=== PATIENT | female | born 1980 | race Caucasian/White ===

== ENCOUNTER 2019-12-15 19:42 | Emergency (ER) | payer BC ==
[2019-12-15] MEDS ORDERED: FLUORESCEIN STRIPS 1 MG STRIP LEFT EYE ONE (20:20)
[2019-12-15] MEDS ORDERED: PROPARACAINE 0.5% OPHTH DROPS 15 ML BTL LEFT EYE STA (20:20)
[2019-12-15] MEDS ORDERED: ONDANSETRON 4 MG/2 ML VIAL IVP STA (20:31)
[2019-12-15] MEDS ORDERED: KETOROLAC 15 MG/ML 1 ML VIAL IVP STA (20:31)
[2019-12-15] MEDS ORDERED: SODIUM CHLORIDE 0.9% 1,000 ML IV ONE (20:31)
--- NOTE | 2019-12-15 20:35 | ED ---
General Adult HPI - General Source: patient Mode of arrival: ambulatory Limitations: no limitations <Priyanka Martinez - Last Filed: 12/16/19 00:48> <Paris Tellez - Last Filed: 12/16/19 13:22> - General Chief complaint: Eye Problems Stated complaint: LT eye pain Time Seen by Provider: 12/15/19 20:12 - History of Present Illness Initial comments: 39-year-old female patient presents to the emergency department today for evaluation of left eye pain. Patient states that on Tuesday she started to have eye irritation felt like something may have been and it. Patient states that she thought she could manage on her own however Tuesday her pain was worse so she went to urgent care. They told her that there was nothing they could do for her and instructed her to follow-up with an gang head saw operator. On she saw an gang head saw operator in [place] who informed her that she had foreign bodies which she did remove. He started her on an antibiotic drop and told her she did have significant improvement within 24 hours. Yesterday/Tuesday patient states that her pain seemed to be worse again and so she went to ophthalmology here in [facility], Dr. Wang. States that he confirmed diagnosis of foreign body with byron bojorquez and urged her to continue the treatment. She was given a prescription for Catharpin which she has been taking which has not helped. Patient states that the pain seemed to be worse last evening so she went to [facility] and was informed that she had an ulcer to the eye and they changed her antibiotic regimen. She did have a CT of her brain which was negative. Patient states that she has been doing both without any relief. Patient states she has been vomiting throughout the day today. Denies fever, chills, headache, dizziness, weakness. States she does have some blurred vision to the eye. Denies constipation or diarrhea. States that she does have history of depression and takes antidepressants but no other medical problems. Patient denies any recent rash, cough, shortness of breath, chest pain, abdominal pain, back pain, numbness, tingling, hematuria, dysuria, urinary urgency, urinary frequency, or any other complaints. (Priyanka Martinez) - Related Data Previous Rx's Medication Instructions Recorded Ondansetron [Zofran ODT] 4 mg PO Q8HR PRN #10 tab 12/15/19 Allergies Allergy/AdvReac Type Severity Reaction Status Date / Time No Known Allergies Allergy Verified 12/16/19 06:46 Review of Systems ROS Other: All systems not noted in ROS Statement are negative. <Priyanka Martinez - Last Filed: 12/16/19 00:48> ROS Other: All systems not noted in ROS Statement are negative. <Paris Tellez Jacinto - Last Filed: 12/16/19 13:22> ROS Statement: Those systems with pertinent positive or pertinent negative responses have been documented in the HPI. Past Medical History Past Medical History: No Reported History History of Any Multi-Drug Resistant Organisms: None Reported Past Surgical History: Orthopedic Surgery Past Psychological History: Anxiety Smoking Status: Never smoker Past Alcohol Use History: Occasional Past Drug Use History: None Reported <Priyanka Martinez - Last Filed: 12/16/19 00:48> General Exam Limitations: no limitations General appearance: alert, in no apparent distress, other (This is a well- developed, well-nourished adult female patient in mild distress related to pain. Vital signs upon presentation are temperature 98.1F, pulse 69, respirations 16, blood pressure 126/80, pulse ox 99% on room air.) Eye exam: Present: PERRL, EOMI, conjunctival injection (Left, very mild), other (Fluorescein stain with Wood's lamp examination was performed and did show multiple lesions on the cornea to the lateral region around 3:00. There is negative Criss sign. Left eye pressure was between 21 and 23 mmHg, right eye pressure was between 18 and 19 mmHg.). Absent: normal appearance, scleral icterus, periorbital swelling ENT exam: Present: normal exam, normal oropharynx, mucous membranes moist Respiratory exam: Present: normal lung sounds bilaterally. Absent: respiratory distress, wheezes, rales, rhonchi, stridor Cardiovascular Exam: Present: regular rate, normal rhythm, normal heart sounds. Absent: systolic murmur, diastolic murmur, rubs, gallop, clicks GI/Abdominal exam: Present: soft, normal bowel sounds. Absent: distended, tenderness, guarding, rebound, rigid Neurological exam: Present: alert, oriented X3, CN II-XII intact Psychiatric exam: Present: normal affect, normal mood Skin exam: Present: warm, dry, intact, normal color. Absent: rash <Priyanka Martinez - Last Filed: 12/16/19 00:48> Course Vital Signs 12/15/19 12/15/19 12/15/19 20:07 21:30 22:51 Temperature 98.1 F 98.0 F 98.2 F Pulse Rate 69 63 61 Respiratory 16 18 18 Rate Blood Pressure 126/80 111/62 116/73 O2 Sat by Pulse 99 99 99 Oximetry Medical Decision Making - Lab Data Result diagrams: 12/15/19 20:41 12/15/19 20:41 <Priyanka Martinez - Last Filed: 12/16/19 00:48> - Lab Data Result diagrams: 12/15/19 20:41 12/15/19 20:41 <Paris Tellez - Last Filed: 12/16/19 13:22> - Medical Decision Making 39-year-old female patient presents to the emergency department today for evaluation of left eye pain. Physical examination did reveal mild left conj unctival injection. Fluorescein stain with Wood's lamp examination was performed and did reveal corneal lesions around 3:00. Pressures to the left eye was between 21 and 23 mmHg, right eye between 18 and 19 mmHg. Labs reviewed and revealed normal white blood cell count. Negative ESR and CRP. Patient has been evaluated by 2 ophthalmologists and was evaluated at [facility] last night where she had negative computed tomography scan. Patient is currently taking Gatifloxacin and ketoralac opthalmic. She also has been taking norco without relief. I did discuss the case with risk consultant ophthalmology Dr. Rico who recommends continuing the regimen she is on and to follow up with he r gang head saw operator on Tuesday. We did discuss pain medication, drops, and cool compresses. She is instructed to follow-up with her primary care physician for recheck in 1-2 days. Return parameters were discussed in detail. She verbalizes understanding and agrees with this plan. (Priyanka Martinez) I was available for consultation in the emergency department. The history and physical exam were done by the midlevel provider. I was consulted for this patients care. I reviewed the case with the midlevel provider and based on their presentation of the patient, I agree with the assessment, medical decision making and plan of care as documented. Chart was dictated using [employer] dictation software. Attempts were made to correct any dictation errors however some typographical errors may persist. Patient was seen during a national state of emergency due to the Covid-19 pandemic. (Paris Tellez) - Lab Data Lab Results 12/15/19 12/15/19 12/15/19 Range/Units 20:41 20:41 20:41 WBC 5.9 (3.8-10.6) k/uL RBC 4.92 (3.80-5.40) m/uL Hgb 15.8 (11.4-16.0) gm/dL Hct 48.0 H (34.0-46.0) % MCV 97.4 (80.0-100.0) fL MCH 32.1 (25.0-35.0) pg MCHC 33.0 (31.0-37.0) g/dL RDW 12.0 (11.5-15.5) % Plt Count 259 (150-450) k/uL Neutrophils % 70 % Lymphocytes % 19 % Monocytes % 6 % Eosinophils % 1 % Basophils % 1 % Neutrophils # 4.1 (1.3-7.7) k/uL Lymphocytes # 1.1 (1.0-4.8) k/uL Monocytes # 0.3 (0-1.0) k/uL Eosinophils # 0.1 (0-0.7) k/uL Basophils # 0.1 (0-0.2) k/uL ESR 8 (0-20) mm/hr Sodium 137 (137-145) mmol/L Potassium 4.5 (3.5-5.1) mmol/L Chloride 103 (98-107) mmol/L Carbon Dioxide 25 (22-30) mmol/L Anion Gap 9 mmol/L BUN 11 (7-17) mg/dL Creatinine 0.64 (0.52-1.04) mg/dL Est GFR (CKD-EPI)AfAm >90 (>60 ml/min/1.73 sqM) Est GFR (CKD-EPI)NonAf >90 (>60 ml/min/1.73 sqM) Glucose 105 H (74-99) mg/dL Calcium 9.6 (8.4-10.2) mg/dL Total Bilirubin 0.7 (0.2-1.3) mg/dL AST 20 (14-36) U/L ALT 12 (4-34) U/L Alkaline Phosphatase 65 (38-126) U/L C-Reactive Protein (<10.0) mg/L Total Protein 8.1 (6.3-8.2) g/dL Albumin 4.8 (3.5-5.0) g/dL Lipase 66 (23-300) U/L 12/15/19 Range/Units 20:41 WBC (3.8-10.6) k/uL RBC (3.80-5.40) m/uL Hgb (11.4-16.0) gm/dL Hct (34.0-46.0) % MCV (80.0-100.0) fL MCH (25.0-35.0) pg MCHC (31.0-37.0) g/dL RDW (11.5-15.5) % Plt Count (150-450) k/uL Neutrophils % % Lymphocytes % % Monocytes % % Eosinophils % % Basophils % % Neutrophils # (1.3-7.7) k/uL Lymphocytes # (1.0-4.8) k/uL Monocytes # (0-1.0) k/uL Eosinophils # (0-0.7) k/uL Basophils # (0-0.2) k/uL ESR (0-20) mm/hr Sodium (137-145) mmol/L Potassium (3.5-5.1) mmol/L Chloride (98-107) mmol/L Carbon Dioxide (22-30) mmol/L Anion Gap mmol/L BUN (7-17) mg/dL Creatinine (0.52-1.04) mg/dL Est GFR (CKD-EPI)AfAm (>60 ml/min/1.73 sqM) Est GFR (CKD-EPI)NonAf (>60 ml/min/1.73 sqM) Glucose (74-99) mg/dL Calcium (8.4-10.2) mg/dL Total Bilirubin (0.2-1.3) mg/dL AST (14-36) U/L ALT (4-34) U/L Alkaline Phosphatase (38-126) U/L C-Reactive Protein <5.0 (<10.0) mg/L Total Protein (6.3-8.2) g/dL Albumin (3.5-5.0) g/dL Lipase (23-300) U/L Disposition Is patient prescribed a controlled substance at d/c from ED?: No Time of Disposition: 23:07 <Priyanka Martinez - Last Filed: 12/16/19 00:48> <GeoffParis Jacinto - Last Filed: 12/16/19 13:22> Clinical Impression: Corneal injury of left eye Disposition: HOME SELF-CARE Condition: Good Instructions (If sedation given, give patient instructions): Eye Foreign Body (ED) Additional Instructions: Continue eyedrops as directed. Alternate Motrin with Tylenol with codeine for pain control. Follow-up with your gang head saw operator on Tuesday. Apply cool compresses to the eye. Return to the emergency department immediately for any new, worsening, or concerning symptoms. Prescriptions: Ondansetron [Zofran ODT] 4 mg PO Q8HR PRN #10 tab PRN Reason: Nausea Referrals: Elvia Orantes MD [Primary Care Provider] - 1-2 days Tony Wang MD [STAFF PHYSICIAN] - 1-2 days
[2019-12-15 20:47] LABS: Basophils # (A) 0.1 k/uL (0-0.2); Basophils % (A) 1 %; Eosinophils # (A) 0.1 k/uL (0-0.7); Eosinophils % (A) 1 %; HGB 15.8 gm/dL (11.4-16.0); Lymphocytes # (A) 1.1 k/uL (1.0-4.8); Lymphocytes % (A) 19 %; MCH 32.1 pg (25.0-35.0); MCV 97.4 fL (80.0-100.0); Mean Platelet Volume 7.6; Monocytes # (A) 0.3 k/uL (0-1.0); Monocytes % (A) 6 %; Neutrophils # (A) 4.1 k/uL (1.3-7.7); Neutrophils % (A) 70 %; Platelet Count 259 k/uL (150-450); RBC 4.92 m/uL (3.80-5.40); WBC 5.9 k/uL (3.8-10.6)
[2019-12-15 20:56] LABS: ALT 12 U/L (4-34); AST 20 U/L (14-36); African American GFR (CKD) >90 (>60 ml/min/1.73 sqM); Albumin 4.8 g/dL (3.5-5.0); Alkaline Phosphatase 65 U/L (38-126); Anion Gap 9 mmol/L; Blood Urea Nitrogen 11 mg/dL (7-17); Calcium 9.6 mg/dL (8.4-10.2); Carbon Dioxide 25 mmol/L (22-30); Chloride 103 mmol/L (98-107); Glucose 105 mg/dL (74-99); Lipase 66 U/L (23-300); Non-African American GFR(CKD) >90 (>60 ml/min/1.73 sqM); Potassium 4.5 mmol/L (3.5-5.1); Sodium 137 mmol/L (137-145); Total Bilirubin 0.7 mg/dL (0.2-1.3); Total Protein 8.1 g/dL (6.3-8.2)
[2019-12-15] MEDS ORDERED: HYDROmorphone 1 MG/ML 1 ML SYRINGE IVP STA (21:11)
[2019-12-15 21:51] VITALS: RESP 18
[2019-12-15] MEDS ORDERED: KETOROLAC 0.5% OPHTH DROPS 5 ML BTL LEFT EYE ONE (22:45)
[2019-12-15 22:57] VITALS: BP 116/73; PULSE 61; TEMP 98.2
[2019-12-15] MEDS ORDERED: HYDROmorphone 0.5 MG/0.5 ML SYRINGE IVP STA (23:07)
[2019-12-15] MEDS ORDERED: ACET/COD 300 MG/30 MG STARTER PACK 6 TAB BTL PO STA (23:07)
== END 2019-12-15 23:25 | disposition home or self-care (01) ==
LOC: EC 19:42
DX: S05.8X2A Other injuries of left eye and orbit, initial encounter (principal); X58.XXXA Exposure to other specified factors, initial encounter
CPT/HCPCS: 36415; 80053; 85652; 83690; 85025; 86140; 99284; 96374; 96375 ×2; 96376; 96361; J2405; J1170 ×2; J1885

== ENCOUNTER 2019-12-16 06:36 | Emergency (ER) | payer BC ==
[2019-12-16 06:46] VITALS: BP 111/72; PULSE 65; RESP 16; TEMP 97.7
[2019-12-16] MEDS ORDERED: ONDANSETRON ODT 4 MG TAB PO STA (06:47)
[2019-12-16] MEDS ORDERED: PROPARACAINE 0.5% OPHTH DROPS 15 ML BTL LEFT EYE STA (06:47)
[2019-12-16] MEDS ORDERED: ONDANSETRON 4 MG ODT STARTER PACK 2 TAB BTL PO STA (06:52)
--- NOTE | 2019-12-16 06:57 | ED ---
Eye Problem HPI - General Chief complaint: Eye Problems Stated complaint: Left eye pain - revisit Time Seen by Provider: 12/16/19 06:46 Source: patient Mode of arrival: ambulatory Limitations: no limitations - History of Present Illness Initial comments: Patient is a 39-year-old female presenting to the emergency department for the second time in 24 hours for left eye pain. Patient has already followed up with to brass plater as well has 2 different hospitals for this pain. She is currently on gatifloxacin and ketoralac eyedrops. Patient states she took 2 Tylenol with codeine this morning and still not helping with the pain and now she is nauseous. Patient's case was discussed in detail with Dr. Rico last night who told patient to continue with eyedrops and to follow-up with ophthalmology on Tuesday. Patient denies any fever, chills. She denies any further complaints. Upon arrival to the ER, her vitals are stable. - Related Data Previous Rx's Medication Instructions Recorded Ondansetron [Zofran ODT] 4 mg PO Q8HR PRN #10 tab 12/15/19 Allergies Allergy/AdvReac Type Severity Reaction Status Date / Time No Known Allergies Allergy Verified 12/16/19 06:46 Review of Systems ROS Statement: Those systems with pertinent positive or pertinent negative responses have been documented in the HPI. ROS Other: All systems not noted in ROS Statement are negative. Past Medical History Past Medical History: No Reported History History of Any Multi-Drug Resistant Organisms: None Reported Past Surgical History: Orthopedic Surgery Past Psychological History: Anxiety Smoking Status: Never smoker Past Alcohol Use History: Occasional Past Drug Use History: None Reported General Exam - General Exam Comments Initial Comments: GENERAL: Patient is well-developed and well-nourished. Patient is nontoxic and in no acute distress. HEAD: Atraumatic, normocephalic. EYES: Pupils equal round and reactive to light, extraocular movements intact, sclera anicteric. Eyelids were unremarkable. Left eye is slightly injected, fluorescein stain reveals small corneal abrasions, consistent with yesterday's findings. No other foreign body seen. Eye pressures remained normal. ENT: TMs normal, nares patent, oropharynx clear without exudates. Moist mucous membranes. NECK: Normal range of motion, supple without lymphadenopathy or JVD. LUNGS: Unlabored respirations. Breath sounds clear to auscultation bilaterally and equal. No wheezes rales or rhonchi. HEART: Regular rate and rhythm without murmurs, rubs or gallops. ABDOMEN: Soft, nontender, normoactive bowel sounds. No guarding, no rebound. No masses appreciated. : Deferred MUSCULOSKELETAL: Normal extremities with adequate strength and normal range of motion, no pitting or edema. No clubbing or cyanosis. NEUROLOGICAL: Patient is alert and oriented x 3. Motor and sensory are also intact. Symmetrical smile. Normal speech, normal gait. PSYCH: Normal mood, normal affect. SKIN: Warm, Dry, normal turgor, no rashes or lesions noted. Limitations: no limitations Course Vital Signs 12/16/19 06:44 Temperature 97.7 F Pulse Rate 65 Respiratory 16 Rate Blood Pressure 111/72 O2 Sat by Pulse 97 Oximetry Medical Decision Making - Medical Decision Making Patient is a 39-year-old female presenting for left eye pain. She was here yesterday evening for same complaint. She has had multiple follow-ups with 2 different ERs, 2 different ophthalmologists. Patient was fully evaluated yesterday with labs showed no acute abnormalities. Her case was also discussed in detail with Dr. Rico yesterday who told patient to continue with already prescribed gatifloacin and ketoralac eye drops and she will follow-up in their office Tuesday. Patient's exam today reveals no other abnormalities. I did give patient a few drops of proparacaine to help with the pain as well as Zofran for her nausea. Also send her home with a starter pack of Zofran. I will also give her Toradol IM today. Patient does have a prescription for Zofran that she is picking up in a few hours. I discussed with patient that I cannot give her narcotics for this. She needs to take Tylenol or Motrin and can alternate between the 2 for discomfort. She also use cold compresses on her eye. Patient is in agreement with this plan of care. Return parameters were discussed with the patient she verbalized understanding. She is stable for discharge. Disposition Clinical Impression: Corneal injury of left eye, Left eye pain Disposition: HOME SELF-CARE Condition: Stable Instructions (If sedation given, give patient instructions): Corneal Abrasion (ED) Additional Instructions: Please return to the Emergency Department if symptoms worsen or any other concerns. Follow-up with brass plater on Tuesday as discussed. Use cold compresses to the eye, alternate between Tylenol and Motrin for discomfort, continue with already prescribed eyedrops. Is patient prescribed a controlled substance at d/c from ED?: No Referrals: Elvia Orantes MD [Primary Care Provider] - 1-2 days Tony Wang MD [STAFF PHYSICIAN] - 1-2 days
[2019-12-16] MEDS ORDERED: KETOROLAC 15 MG/ML 1 ML VIAL IM STA (07:04)
== END 2019-12-16 07:20 | disposition home or self-care (01) ==
LOC: EC 06:36
DX: S05.02XA Injury of conjunctiva and corneal abrasion without foreign body, left eye, initial encounter (principal); R11.0 Nausea; X58.XXXA Exposure to other specified factors, initial encounter
CPT/HCPCS: 99283; 96372; J1885; S0119

== ENCOUNTER 2019-12-17 18:51 | Emergency (ER) | payer BC ==
[2019-12-17 18:57] VITALS: BP 125/73; PULSE 63; RESP 18; TEMP 98.4
--- NOTE | 2019-12-17 19:39 | ED ---
General Adult HPI - General Chief complaint: Skin/Abscess/Foreign Body Stated complaint: Swollen eye Time Seen by Provider: 12/17/19 19:23 Source: patient Mode of arrival: ambulatory Limitations: no limitations - History of Present Illness Initial comments: Patient is a 39-year-old female presenting to the emergency department the chief complaint of a rash and left eye swelling. Patient reports she did go back and forth with problems in her left eye over the last week. Patient states she seen 2 ophthalmologists who currently have her on currently on gatifloxacin and ketoralac eyedrops. Patient is also had CT of the head as well as laboratory work with no significant findings. Patient states the pain in the left eye is actually improving although she's noticed some mild swelling of the left eye. Patient reports the pain in the left eye is also improving since yesterday. However, today she has developed a rash on the left side of her face. Patient reports the rash is painful and the medication to prescribed her is all finished. Patient reports she's had chickenpox as a child. States she has an appointment tomorrow with . Patient is not diabetic, nor immunocompromised. - Related Data Previous Rx's Medication Instructions Recorded Ondansetron [Zofran ODT] 4 mg PO Q8HR PRN #10 tab 12/15/19 valACYclovir HCL [Valtrex] 1,000 mg PO Q8HR #30 tab 12/17/19 Allergies Allergy/AdvReac Type Severity Reaction Status Date / Time No Known Allergies Allergy Verified 12/17/19 18:57 Review of Systems ROS Statement: Those systems with pertinent positive or pertinent negative responses have been documented in the HPI. ROS Other: All systems not noted in ROS Statement are negative. Past Medical History Past Medical History: No Reported History History of Any Multi-Drug Resistant Organisms: None Reported Past Surgical History: Orthopedic Surgery Past Psychological History: Anxiety Smoking Status: Never smoker Past Alcohol Use History: Occasional Past Drug Use History: None Reported General Exam Limitations: no limitations General appearance: alert, in no apparent distress Head exam: Present: atraumatic, normocephalic, normal inspection, other (Herpetic lesions on the left side of the face and scalp. Early developing vesicles.) Eye exam: Present: normal appearance, PERRL, EOMI, conjunctival injection (Left eye), other (Very mild swelling of the left eye. No pain with extraocular movements. Negative Criss sign, corneal abrasions or ulcers. No dendritic le sions noted on fluorescein stain.) Pupils: Present: normal accommodation, other (Herpetic lesions are going around the eye. No concern for orbital or periorbital cellulitis.) ENT exam: Present: normal exam, normal oropharynx, mucous membranes moist, TM's normal bilaterally, normal external ear exam Neck exam: Present: normal inspection, full ROM Respiratory exam: Present: normal lung sounds bilaterally. Absent: respiratory distress, wheezes, rales Cardiovascular Exam: Present: regular rate, normal rhythm, normal heart sounds GI/Abdominal exam: Present: soft. Absent: distended, tenderness, guarding Extremities exam: Present: normal inspection, full ROM. Absent: tenderness Back exam: Present: normal inspection, full ROM. Absent: tenderness Neurological exam: Present: alert, oriented X3 Psychiatric exam: Present: normal affect, normal mood Skin exam: Present: warm, dry, intact, normal color, rash (Herpetic lesions in the left side of the face and head. Positive Young sign.) Course Vital Signs 12/17/19 18:54 Temperature 98.4 F Pulse Rate 63 Respiratory 18 Rate Blood Pressure 125/73 O2 Sat by Pulse 98 Oximetry Medical Decision Making - Medical Decision Making Patient is a 39-year-old female presenting to emergency Department with chief complaint of a rash and left eye swelling. Patient is currently on gatifloxacin and ketorolac drops. On initial evaluation, patient does have some mild edematous swelling to the left eye but no signs of periorbital or orbital cellulitis. Fluorescein stain reveals no signs of corneal abrasions, ulcers or dendritic lesions. Patient does have a rash on the left side of her face and scalp. This is an erythematous base with early vesicles developing on some of the lesions. Positive Young sign. I have suspicion for shingles. Patient is not immunocompromised, no diabetic. The rash is painful in nature. The lesions are going around the left eye. I suspect the swelling secondary to the shingles. Patient started on Valtrex in the ED and will be discharged with a 10 day course of Valtrex every 8hr. Patient has an appointment tomorrow with , the golf course designer. Patient advised to apply cold compress and take Tylenol 3 for pain. Strict return parameters were thoroughly discussed with patient is an attending agreeable. Case discussed with physician. Disposition Clinical Impression: Shingles Disposition: HOME SELF-CARE Condition: Stable Instructions (If sedation given, give patient instructions): Shingles (ED) Additional Instructions: Take prescribed medication as directed. Apply ice compresses and alternate between Tylenol and Motrin for pain control. Follow with an golf course designer. Return to emergency department if symptoms worsen. Prescriptions: valACYclovir HCL [Valtrex] 1,000 mg PO Q8HR #30 tab Is patient prescribed a controlled substance at d/c from ED?: No Referrals: Elvia Orantes MD [Primary Care Provider] - 1-2 days Time of Disposition: 20:50
[2019-12-17] MEDS ORDERED: FLUORESCEIN STRIPS 1 MG STRIP RIGHT EYE ONE (19:57)
[2019-12-17] MEDS ORDERED: valACYclovir HCL 1,000 MG TABLET PO STA (20:49)
[2019-12-17] MEDS ORDERED: ACET/COD 300 MG/30 MG STARTER PACK 6 TAB BTL PO STA (20:50)
== END 2019-12-17 21:15 | disposition home or self-care (01) ==
LOC: EC 18:51
DX: B02.30 Zoster ocular disease, unspecified (principal)
CPT/HCPCS: 99283